=== PATIENT | female | born 1995 | race Caucasian/White ===

== ENCOUNTER 2020-01-26 13:22 | Observation (INO) | END 2020-01-26 17:09 | disposition home or self-care (01) | LOC: 1NENULAB | PROVIDERS: ADMIT Obstetrics & Gynecology; ATTEND Obstetrics & Gynecology ==

== ENCOUNTER 2020-01-27 17:00 | Inpatient (IN) ==
[~2020-01-27 17:00] MED LIST: *HR* FentaNYL (PF) 100 MCG/2 ML VIAL IVP PRN; Famotidine 20 MG/2 ML VIAL IVP PRN; Metoclopramide 10 MG/2 ML VIAL IVP PRN; Naloxone 0.4 MG/ML INJ IVP PRN; Ringers Solution, Lactated 1,000 ML IVC SCH
[2020-01-27 17:45] LABS: Basophils % 0.2 %; Hematocrit 35.7 % (35.3-44.9); Hemoglobin 11.2 g/dL (11.5-15.4); Immature Granulocytes % 0.4 % (0-4); Lymphocytes # 1.9 K/mcL (0.6-4.6); Lymphocytes % 13.6 %; Mean Corpuscular HGB Conc 31.4 g/dL (31.6-35.5); Mean Corpuscular Hemoglobin 25.6 pg (28.0-33.3); Mean Corpuscular Volume 81.5 fL (83.0-100.0); Mean Platelet Volume 10.4 fL (9.4-12.4); Monocytes # 0.9 K/mcL (0.0-1.3); Monocytes % 6.5 %; Neutrophils # 11.2 K/mcL (1.6-8.9); Platelet Count 316 K/mcL (140-400); Red Blood Count 4.38 M/mcL (3.82-4.97); Red Cell Distribution Width 14.1 % (11.5-14.5); Segmented Neutrophils % 79.3 %; White Blood Count 14.1 K/mcL (4.3-11.1)
[2020-01-27] MEDS ORDERED: EPHEDrine 50 MG/ML VIAL IVP PRN (17:45)
[2020-01-27] MEDS ORDERED: Epidural Premix (fent/bupiv) 110 ML EP SCH (17:45)
[2020-01-27] MEDS ORDERED: Ropivacaine/PF 0.2% 20 ML VIAL ONE (18:25)
[2020-01-27] MEDS ORDERED: *HR* FentaNYL (PF) 100 MCG/2 ML VIAL ONE (18:25)
[2020-01-27] MEDS ORDERED: Famotidine 20 MG/2 ML VIAL IVP PRN (19:31)
[2020-01-27] MEDS ORDERED: Ondansetron 4 MG/2 ML VIAL IVP PRN (19:49)
[2020-01-27] MEDS ORDERED: Ringers Solution, Lactated 1,000 ML IVC ONE (20:01)
[2020-01-27 20:14] LABS: Amphetamine Screen,Urine Negative ng/mL (Cutoff=1000); Barbiturate Screen,Urine Negative ng/mL (Cutoff=200); Benzodiazepines Screen,Urine Negative ng/mL (Cutoff=200); Cannabinoid Screen,Urine Negative ng/mL (Cutoff = 50); Cocaine Screen,Urine Negative ng/mL (Cutoff= 300); Opiate Screen,Urine Negative ng/mL (Cutoff=300); Phencyclidine Screen,Urine Negative ng/mL (Cutoff=25)
[2020-01-27] MEDS ORDERED: Oxytocin 20 units/ LR 1000 mL 20 UNIT/1,000 ML BAG IVC SCH (20:45)
[2020-01-28] MEDS ORDERED: Oxytocin 20 units/ LR 1000 mL 20 UNIT/1,000 ML BAG IVC SCH (05:53)
[2020-01-28] MEDS ORDERED: Measles/Mumps/Rubella Vacc 0.5 ML VIAL SQ PRN (05:53)
[2020-01-28] MEDS ORDERED: Rho Immune Globulin 1,500 UNIT SYRINGE IM PRN (05:53)
[2020-01-28] MEDS ORDERED: Acetaminophen 325 MG TABLET PO PRN (06:00)
[2020-01-28] MEDS ORDERED: Benzocaine/Menthol 56 GM AEROSOL SPRAY TP PRN (08:47)
[2020-01-28] MEDS: Prenatal Vit/FA 1 EACH TABLET PO SCH (09:02)
[2020-01-28] MEDS: Ibuprofen 600 MG TABLET PO PRN ×2 (12:35→21:59)
[2020-01-29 05:35] LABS: Basophils % 0.2 %; Eosinophils % 0.2 %; Hematocrit 28.4 % (35.3-44.9); Immature Granulocytes % 0.7 % (0-4); Lymphocytes % 18.6 %; Mean Corpuscular HGB Conc 30.6 g/dL (31.6-35.5); Mean Corpuscular Hemoglobin 25.4 pg (28.0-33.3); Mean Corpuscular Volume 82.8 fL (83.0-100.0); Mean Platelet Volume 9.9 fL (9.4-12.4); Monocytes # 0.9 K/mcL (0.0-1.3); Monocytes % 8.2 %; Neutrophils # 7.6 K/mcL (1.6-8.9); Platelet Count 204 K/mcL (140-400); Red Blood Count 3.43 M/mcL (3.82-4.97); Red Cell Distribution Width 14.4 % (11.5-14.5); Segmented Neutrophils % 72.1 %; White Blood Count 10.5 K/mcL (4.3-11.1)
[2020-01-29 05:36] LABS: Hemoglobin 8.7 g/dL (11.5-15.4)
[2020-01-29] MEDS: Prenatal Vit/FA 1 EACH TABLET PO SCH (08:27)
[2020-01-29 09:13] VITALS: BP 132/87
== END 2020-01-29 10:39 | disposition home or self-care (01) | DRG 807 ==
LOC: 1NENULAB → 1NENUOBS 01-28 05:52
PROVIDERS: ADMIT Obstetrics & Gynecology; ATTEND Obstetrics & Gynecology